=== PATIENT | male | born 2000 | race Asian ===

== ENCOUNTER 2024-10-24 09:39 | Emergency (ER) | payer OTHER, SELFPAY ==
[2024-10-24 09:49] VITALS: BP 133/73; PULSE 74; RESP 16; TEMP 36.2; O2SAT 96; BMI 30.5
--- NOTE | 2024-10-24 09:59 | ED_ITS ---
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 He notes frequency for 2 weeks now with dysuria and noted hematuria this AM. NO trauma, no testicular pain, discharge, rash. He has never had kidney stones. He denies fevers, back pain, abdominal pain, n/v/d. He has never had an infection before or hx of kidney stones. He has same sexual partner in his . MD Complaint: dysuria and other Onset (ago): week(s) (2) Duration: intermittent Location: penis Severity: moderate Quality: burning Relieving factors: none Exacerbating factors: urination Context: other Associated symptoms: Reports denies other symptoms Related Data Previous Rx's ?Medication ?Instructions ?Recorded doxycycline hyclate 100 mg capsule 100 mg PO BID 7 day s #14 caps 10/24/24 Allergies Allergy/AdvReac Type Severity Reaction Status Date / Time No Known Allergies Allergy Verified 10/24/24 09:49 Review of Systems Review of Systems: Constitutional : No Fever, No Chills, No Fatigue ENT/Mouth : No sore throat, No Rhinorrhea Eyes: No Eye Pain, No Swelling, No Redness Cardiovascular : No Chest Pain, No SOB, No Dyspnea on Exertion Respiratory : No Cough, No Sputum Gastrointestinal : No Nausea, No Vomiting, No Diarrhea, No abdominal Pain Genitourinary : pos Dysuria, No Urinary Frequency, No Hematuria, Musculoskeletal : No joint pain, No Myalgias, No Joint Swelling Skin : No Skin Lesions, No rash Neuro : No Weakness, No Numbness, No Dizziness, no Headache All other systems reviewed and are negative PMFSH Past Medical History Attestation statement: The following information was validated with the patient. Source: old records reviewed Medical History No pertinent past medical history Social History Social History (Updated 10/24/24 @ 10:07 by Anu Gregg DO) Patient Tobacco Use Status: Never used Tobacco Advance Directives: No Advance Directives Information Provided: No Physical Exam Vital Signs: Vital Signs: Last Vital Signs Temp 97.1 F 10/24/24 09:49 Pulse 74 10/24/24 09:49 Resp 16 10/24/24 09:49 BP 133/73 10/24/24 09:49 Pulse Ox 96 10/24/24 09:49 O2 Del Method Room Air 10/24/24 09:49 BMI result Body Mass Index 30.5 Appearance: Alert. Oriented X3. No acute distress. Eyes: Pupils equal, round and reactive to light. ENT: Pharynx normal. Neck: Normal inspection. Neck supple. CVS: Normal heart rate and rhythm. Pulses normal. Respiratory: No respiratory distress. Breath sounds normal. Abdomen: Soft and nontender. Skin: Skin warm and dry. Normal skin color. Normal skin turgor. Extremities: No lower extremity edema. No calf ttp Neuro: Oriented X 3. No motor deficit. No sensory deficit. CN2-12 intact Medical Decision Making Medical Decision Making [facility] Narrative: 24 yo male with no sig PMH here with urinary frequency and dysuria but no rash/swelling/discharge. He denies concerns for STI. He has no pain to suggest stone and no hx of stone. He has not had UTI before. At this time given complaints without systemic symptoms will obtain UA and CTNG Differential Diagnosis Differential Diagnoses: The differential diagnosis associated with the presentation includes uerthritis, dysuria, UTI, STI Admission/Observation Consideration of admission/observation: Escalation of care including admission/observation considered will treat for possible urethritis given no bacteria or crystals and no blood he is aware and agrees can be managed as outpatient Lab Data [facility] Lab Attestation statement: I reviewed the patient's lab results. Labs: Lab Results 10/24/24 Range/Units 10:06 Urine Color Yellow Urine Appearance Clear Urine pH 6.5 (5.0-9.0) Ur Specific [place] <= 1.005 (1.005-1.025) Urine Protein Negative (Neg-Trace) mg/dL Urine Glucose (UA) Negative (Negative) mg/dL Urine Ketones Negative (Negative) mg/dL Urine Blood Small (1+) H (Negative) Urine Nitrite Negative (Negative) Ur Leukocyte Esterase Moderate (2+) H (Negative) Urine RBC 0-2 (0-2) /HPF Urine WBC 11-20 H (0-5) /HPF Ur Squamous Epith Cells 0-2 (0-2) /HPF Urine Bacteria None Seen (None Seen) Hyaline Casts 0-2 (0-2) /LPF Prescription Management I considered prescription management with: Antibiotic and Other Discharge Plan Discharge Clinical Impression: Urethritis Patient Disposition: Home, Self-Care Instructions: Urethritis (ED) Additional Instructions: we will call you with positive results you are being covered for gonorrhea and chlamydia take all medications with food return for any worsening symptoms or concerns if your test is positive you need to notify your partner abstain from sex until you finish antibiotics and confirm your partner is also not infected if you test positive On doxycycline, do not take pills immediately before going to bed and swallow pills with plenty of water. Avoid direct sunlight, iron, antacids, and Pepto Bismol. Call your provider if you develop new ringing in your ears, new problems hearing, dizziness, difficulty swallowing, rash, abdominal discomfort, nausea, or diarrhea.? Prescriptions: New doxycycline hyclate 100 mg capsule 100 mg PO BID 7 Days Qty: 14 0RF Print Language: Slovak
[2024-10-24 10:14] LABS: Appearance Urine Clear; Glucose Urine UA Negative (Negative); PH 6.5 (5.0-9.0); Specific Gravity - Urine <= 1.005 (1.005-1.025); UMIC TRIGGER UACC YES
--- NOTE | 2024-10-24 10:18 | PC.NURSE ---
clean catch sent to lab, pt is aware we need a dirty urine as well.
[2024-10-24 10:21] LABS: UACC Culture Trigger YES
[2024-10-24] MEDS: cefTRIAXone sodium 500 MG, Lidocaine HCl 1 % MPF 1 ML IM (11:16)
[2024-10-24 11:29] VITALS: BP 128/70; PULSE 77; RESP 16; TEMP 36.3; O2SAT 96
--- NOTE | 2024-10-24 11:29 | PC.NURSE ---
pt medicated per order
[2024-10-24 12:23] LABS: CT PCR Urine DETECTED (Not Detect.); NG PCR Urine NOT DETECTED (Not Detect.)
== END 2024-10-24 11:29 | disposition home or self-care (01) ==
PROVIDERS: Emergency Provider Emergency Medicine; PCP Family Medicine
DX: N34.2 Other urethritis (principal); A74.9 Chlamydial infection, unspecified; R30.0 Dysuria; R31.9 Hematuria, unspecified; Z79.899 Other long term (current) drug therapy
CPT/HCPCS: 36415; 81001; 87086; 87491; 87591; 96372; 99284; J0696; J2003